=== PATIENT | female | born 1970 | race Caucasian/White ===

== ENCOUNTER → 2018-07-13 | Day surgery (SDC) | payer BC ==
--- NOTE | 2018-07-13 21:52 | RAD REPORT ---
EXAM DESCRIPTION: US - Breast Core BX w/US Guidance - 07/13/2018 11:47 am CLINICAL HISTORY: Right breast mass ICD N60.01 COMPARISON: June 24, 2018 ultrasound. TECHNIQUE: The risks, benefits and alternatives to the procedure explained to the patient and inform ed consent obtained. Under sonographic guidance the 14 mm lobulated hypoechoic mass within the upper outer right breast wa s localized. The skin and subcutaneous tissues were anesthetized with Lidocaine. Under sonographic gu idance two 14-gauge vacuum assisted core biopsies of the mass were obtained. Two 2 cm core specimens were were taken and given to pathology. The preliminary report suspicious for fibroadenoma. Subsequently a localizing clip was placed adjacent to the mass. The patient experienced no immediate complication. IMPRESSION: Vacuum assisted core biopsies of a 1.4 cm mass within the upper outer right breast.
== END ==
LOC: DS 10:36
PROVIDERS: ATTEND Obstetrics & Gynecology
PROC: 0HBT3ZX Excision of Right Breast, Percutaneous Approach, Diagnostic (ICD-10-PCS; principal; 2018-07-13)
DX: N60.01 Solitary cyst of right breast (principal)
CPT/HCPCS: 19083; 88305; 88333